=== PATIENT | male | born 1950 | race Caucasian/White ===

== ENCOUNTER 2017-09-19 12:30 | Emergency (ER) | payer MEDICARE, BC, SELFPAY ==
[2017-09-19 12:41] VITALS: BP 117/70; PULSE 57; RESP 20; TEMP 35.5; O2SAT 98; BMI 21.9
--- NOTE | 2017-09-19 13:02 | DI.RAD.S_ITS ---
PROCEDURE: XR ANKLE RT MIN 3V INDICATIONS: fall, pain lateral malleolus, decreased rom TECHNIQUE: 3 views of the ankle were acquired. COMPARISON: None. FINDINGS: Bones: No fractures or dislocations. Ankle mortise is normally aligned. No suspicious bony lesions. Soft tissues: No tibiotalar joint effusion. Achilles tendon appears normal. IMPRESSION: No acute radiographic findings. If pain persists, repeat study in 5-7 days is recommended to exclude occult fracture. Dictated by: Mirna Gambino M.D. on 09/19/2017 at 13:52 Approved by: Mirna Gambino M.D. on 09/19/2017 at 13:52
--- NOTE | 2017-09-19 13:02 | DI.RAD.S_ITS ---
PROCEDURE: XR WRIST LT MIN 3V INDICATIONS: pain, decreased ROM after fall TECHNIQUE: 4 views of the wrist were acquired. COMPARISON: None. FINDINGS: Bones: There is a comminuted, intra-articular fracture of the distal radius. The distal ulna appears intact. Scaphoid view: The scaphoid is intact. Soft tissues: No suspicious soft tissue calcifications. IMPRESSION: Comminuted intra-articular distal radial fracture. Dictated by: Mirna Gambino M.D. on 09/19/2017 at 13:53 Approved by: Mirna Gambino M.D. on 09/19/2017 at 13:53
--- NOTE | 2017-09-19 13:02 | DI.RAD.S_ITS ---
PROCEDURE: XR FOOT RT MIN 3V INDICATIONS: pain, decreased ROM after fall TECHNIQUE: 3 views of the foot were acquired. COMPARISON: None. FINDINGS: Bones: No fractures or dislocations. No suspicious bony lesions. Soft tissues: No tibiotalar joint effusion. Achilles tendon appears normal. IMPRESSION: No acute radiographic findings. If pain persists, repeat study in 5-7 days is recommended to exclude occult fracture. Dictated by: Mirna Gambino M.D. on 09/19/2017 at 13:51 Approved by: Mirna Gambino M.D. on 09/19/2017 at 13:52
--- NOTE | 2017-09-19 13:08 | ED.LOWEXIN ---
HPI - Extremity Injury (Lower) <AMY Toledo - Last Filed: 09/19/17 22:41> General Chief Complaint: Extremity Injury, Lower Stated Complaint: FELL,RT ANKLE AND LFT WRIST HURTING Time Seen by Provider: 09/19/17 12:54 Source: patient and family Mode of arrival: ambulatory Limitations: no limitations History of Present Illness HPI Narrative: Patient states he fell while getting off the boat about an hour ago. He states he has pain in his left wrist and right ankle. He states he tripped and fell, did not syncope. He was able to walk after the accident. He denies hitting his head, neck, back or any other injuries from his fall. He states decreased range of motion and pain to palpation of his right ankle, top of right foot as well as left wrist. He has not taken anything for pain yet. He does have a few abrasions on his legs and states he is tetanus is updated in 2011. Pain in wrist is described as on top of wrist with movement. Pain in ankle as described as the side of ankle and the top of the foot. Related Data Allergies Allergy/AdvReac Type Severity Reaction Status Date / Time No Known Drug Allergies Allergy Verified 09/19/17 12:45 Review of Systems <AMY Toledo - Last Filed: 09/19/17 22:41> Review of Systems GENERAL: Denies chills, fatigue, malaise, fever, sweats. HEENT: Denies sinus pain, ear pain, sore throat, difficulty swallowing, dizziness. RESPIRATORY: Denies dyspnea, cough, wheezing, hemoptysis, sputum. CARDIOVASCULAR: Denies chest pain, palpitations, orthopnea, edema, GASTROINTESTINAL: Denies nausea, vomiting, abdominal pain, diarrhea, constipation, melena. : Denies dysuria, frequency, incontinence, hematuria, urinary retention. MUSCULOSKELETAL: See HPI SKIN: See HPI NEUROLOGIC: Denies weakness, headache, numbness, change in speech, confusion, seizures, incoordination. PSYCHIATRIC: No concerning psychosocial issues. 12 point review of systems is negative except for those stated above Exam <AMY Toledo - Last Filed: 09/19/17 22:41> Narrative Exam Narrative: GENERAL: This is a well-nourished, well-developed patient, in no distress. at bedside. HEAD: Atraumatic. Normocephalic. No temporal or scalp tenderness. EYES: Pupils equal round and reactive. Extraocular motions intact. No scleral icterus. No injection or drainage. ENT: Nose without bleeding, purulent drainage or septal hematoma. Throat without erythema, tonsillar hypertrophy or exudate. Uvula midline. Airway patent. NECK: Trachea midline. No JVD or lymphadenopathy. Supple, nontender, no meningeal signs. CARDIOVASCULAR: Regular rate and rhythm without murmurs, gallops, or rubs. RESPIRATORY: Clear to auscultation. Breath sounds equal bilaterally. No wheezes, rales, or rhonchi. GASTROINTESTINAL: Abdomen soft, non-tender, nondistended. No hepato-splenomegaly, or palpable masses. No guarding. EXTREMITIES: Right ankle: Patient is able to extend ankle, pain on flexion of ankle. Pain to palpation lateral aspect of ankle distal to the malleolus. Swelling noted distal to lateral malleolus, extending over foot. pain to palpation top of right foot. Positive peripheral pulses right foot. left wrist: Pain to palpation anterior aspect of left wrist. Patient is able to flex and extend left wrist though has pain on flexion. No snuffbox tenderness to palpation. Patient is able to pronate and supinate forearm without difficulty. Positive radial pulse in left wrist. BACK: Nontender without deformity or crepitance. No flank tenderness. NEURO: AOx3. SKIN: Ecchymosis noted lateral malleolus of right ankle. Slight abrasions noted to right rey. Initial Vital Signs Initial Vital Signs: Vital Signs Temperature 96 F L 09/19/17 12:41 Pulse Rate 57 L 09/19/17 12:41 Respiratory Rate 20 09/19/17 12:41 Blood Pressure 117/70 09/19/17 12:41 Pulse Oximetry 98 09/19/17 12:41 <Edward Phelps MD - Last Filed: 10/21/17 06:48> Initial Vital Signs Initial Vital Signs: Vital Signs Temperature 96 F L 09/19/17 12:41 Pulse Rate 57 L 09/19/17 12:41 Respiratory Rate 20 09/19/17 12:41 Blood Pressure 117/70 09/19/17 12:41 Pulse Oximetry 98 09/19/17 12:41 Procedures <AMY Toledo - Last Filed: 09/19/17 22:41> Orthopedic Splinting/Casting Injury #1: Side: left Upper Extremity Injury Location: wrist Upper Extremity Immobilizer: sling/shoulder immobilizer and sugar tong splint Additional Comments: Pulse motor sensory was intact before and after splint application. Fingers are warm, patient able to move fingers. Course <SANTANA Toledo-BC - Last Filed: 09/19/17 22:41> Orders Ordered: Discontinued Medications Ibuprofen (Advil) 800 mg PO NOW ONE Stop: 09/19/17 14:49 Last Admin: 09/19/17 14:52 Dose: 800 mg Reevaluation(s) Reevaluation #1: Discussed waiting for x-rays. Discussed waiting for x-ray result. Patient does not want pain medication at this time. Appears comfortable in bed, talking on cell phone. Time: 13:10 Reevaluation #2: Discussed waiting for x-ray result. Patient still does not want pain medication or ice at this time. Time: 13:45 Reevaluation #3: Discussed x-ray results with patient and . Discussed incidence of distal radial fracture. Discussed desire to place splint, as a double sugar-tong to prevent pronation and supination. Patient declined upper portion of splint. Discussed at length not pronating or supinating. Time: 14:30 Additional Reevaluation(s): 14:50: Evaluated splint. Pulse motor sensory distal to splint is intact. Offered pain medication and ice again. Discussed at length follow up with primary care as well as [facility]. Patient declined prescription pain medication at this time. Vital Signs - 8 hr 09/19/17 15:17 Pulse Rate 73 Respiratory Rate 16 Blood Pressure [Right Arm] 127/78 H Pulse Oximetry 96 <Edward Phelps MD - Last Filed: 10/21/17 06:48> Orders Ordered: Discontinued Medications Ibuprofen (Advil) 800 mg PO NOW ONE Stop: 09/19/17 14:49 Last Admin: 09/19/17 14:52 Dose: 800 mg Vital Signs - 8 hr 09/19/17 15:17 Pulse Rate 73 Respiratory Rate 16 Blood Pressure [Right Arm] 127/78 H Pulse Oximetry 96 MDM - Extremity Injury (Lower) <HOLA ToledoBC - Last Filed: 09/19/17 22:41> Imaging Data left wrist xray: Radiologist's impression: View Report History [address] [address] XRay Report Signed Patient: Rob Murphy MR#: [id number] : 1950 Acct:[id number] Age/Sex: 67 / M Date of Service: 09/19/17 Loc: ED Accession Number: [id number] Procedure: XR wrist LT min 3V Ordering Provider: Terra Summers-MORGAN PROCEDURE: XR WRIST LT MIN 3V INDICATIONS: pain, decreased ROM after fall TECHNIQUE: 4 views of the wrist were acquired. COMPARISON: None. FINDINGS: Bones: There is a comminuted, intra-articular fracture of the distal radius. The distal ulna appears intact. Scaphoid view: The scaphoid is intact. Soft tissues: No suspicious soft tissue calcifications. IMPRESSION: Comminuted intra-articular distal radial fracture. Dictated by: Mirna Gambino M.D. on 09/19/2017 at 13:53 Approved by: Mirna Gambino M.D. on 09/19/2017 at 13:53 right foot xray: Radiologist's impression: View Report History [address] [address] XRay Report Signed Patient: Rob Murphy MR#: [id number] : 1950 Acct:[id number] Age/Sex: 67 / M Date of Service: 09/19/17 Loc: ED Accession Number: [id number] Procedure: XR foot RT min 3V Ordering Provider: Terra Summers-MORGAN PROCEDURE: XR FOOT RT MIN 3V INDICATIONS: pain, decreased ROM after fall TECHNIQUE: 3 views of the foot were acquired. COMPARISON: None. FINDINGS: Bones: No fractures or dislocations. No suspicious bony lesions. Soft tissues: No tibiotalar joint effusion. Achilles tendon appears normal. IMPRESSION: No acute radiographic findings. If pain persists, repeat study in 5-7 days is recommended to exclude occult fracture. Dictated by: Mirna Gambino M.D. on 09/19/2017 at 13:51 Approved by: Mirna Gambino M.D. on 09/19/2017 at 13:52 right ankle xray: Radiologist's impression: View Report History [address] [address] XRay Report Signed Patient: Rob Murphy MR#: [id number] : 1950 Acct:[id number] Age/Sex: 67 / M Date of Service: 09/19/17 Loc: ED Accession Number: [id number] Procedure: XR ankle RT min 3V Ordering Provider: Terra Summers [employer]-BC PROCEDURE: XR ANKLE RT MIN 3V INDICATIONS: fall, pain lateral malleolus, decreased rom TECHNIQUE: 3 views of the ankle were acquired. COMPARISON: None. FINDINGS: Bones: No fractures or dislocations. Ankle mortise is normally aligned. No suspicious bony lesions. Soft tissues: No tibiotalar joint effusion. Achilles tendon appears normal. IMPRESSION: No acute radiographic findings. If pain persists, repeat study in 5-7 days is recommended to exclude occult fracture. Dictated by: Mirna Gambino M.D. on 09/19/2017 at 13:52 Approved by: Mirna Gambino M.D. on 09/19/2017 at 13:52 [facility] Narrative Medical decision making narrative: Patient's x-rays were concerning for a comminuted intra-articular distal radial fracture. However his foot and ankle x-rays came back negative. Patient was placed in a sugar-tong splint as he declined a splint of his humerus as per up-to-date recommendations. He was given contact information for [facility]. We discussed at length rice, zest-czt-juckhuo pain medication as needed. He declined pain medications several times in the emergency department. Discharge Plan Departure Patient Disposition: Home, Self-Care Clinical Impression: Closed fracture of left distal radius, Acute right ankle pain Discharge Date/Time: 09/19/17 15:16 Interventions: ED Discharge Assessment Last Done: 09/19/17 15:15 Instructions: DI for Distal Radius Fracture, DI for Ankle Pain Activity Restrictions/Additional Instructions: Today your x-ray show that you broke the lower portion of your wrist. I would like you to follow up with [facility] and placed a referral. Monitor for circulation in your left hand. If you are concerned about decreased circulation, please have your splint and wrist evaluated. I encourage rest, ice, cvib-hpa-esiuwsi pain medication as able, elevation, and compression. Follow up with primary care if your ankle does not improve. He may need further imaging or referral. Referrals: [facility] [Provider Group] Seamus Baca MD [Physician] - <Edward Phelps MD - Last Filed: 10/21/17 06:48> Cosign ED Attending Cosignature Attestation: The PA/TECHNOLOGY AUDITOR functioned independently for the care of this pt, I was available, but not asked to participate in care. I am unable to determine appropriateness of management without personally examining the pt.
--- NOTE | 2017-09-19 13:14 | ED_ITS ---
HPI - Extremity Injury (Lower) <AMY Toledo - Last Filed: 09/19/17 22:41> General Chief Complaint: Extremity Injury, Lower Stated Complaint: FELL,RT ANKLE AND LFT WRIST HURTING Time Seen by Provider: 09/19/17 12:54 Source: patient and family Mode of arrival: ambulatory Limitations: no limitations History of Present Illness HPI Narrative: Patient states he fell while getting off the boat about an hour ago. He states he has pain in his left wrist and right ankle. He states he tripped and fell, did not syncope. He was able to walk after the accident. He denies hitting his head, neck, back or any other injuries from his fall. He states decreased range of motion and pain to palpation of his right ankle, top of right foot as well as left wrist. He has not taken anything for pain yet. He does have a few abrasions on his legs and states he is tetanus is updated in 2011. Pain in wrist is described as on top of wrist with movement. Pain in ankle as described as the side of ankle and the top of the foot. Related Data Allergies Allergy/AdvReac Type Severity Reaction Status Date / Time No Known Drug Allergies Allergy Verified 09/19/17 12:45 Review of Systems <AMY Toledo - Last Filed: 09/19/17 22:41> Review of Systems GENERAL: Denies chills, fatigue, malaise, fever, sweats. HEENT: Denies sinus pain, ear pain, sore throat, difficulty swallowing, dizziness. RESPIRATORY: Denies dyspnea, cough, wheezing, hemoptysis, sputum. CARDIOVASCULAR: Denies chest pain, palpitations, orthopnea, edema, GASTROINTESTINAL: Denies nausea, vomiting, abdominal pain, diarrhea, constipation, melena. : Denies dysuria, frequency, incontinence, hematuria, urinary retention. MUSCULOSKELETAL: See HPI SKIN: See HPI NEUROLOGIC: Denies weakness, headache, numbness, change in speech, confusion, seizures, incoordination. PSYCHIATRIC: No concerning psychosocial issues. 12 point review of systems is negative except for those stated above Exam <AMY Toledo - Last Filed: 09/19/17 22:41> Narrative Exam Narrative: GENERAL: This is a well-nourished, well-developed patient, in no distress. at bedside. HEAD: Atraumatic. Normocephalic. No temporal or scalp tenderness. EYES: Pupils equal round and reactive. Extraocular motions intact. No scleral icterus. No injection or drainage. ENT: Nose without bleeding, purulent drainage or septal hematoma. Throat without erythema, tonsillar hypertrophy or exudate. Uvula midline. Airway patent. NECK: Trachea midline. No JVD or lymphadenopathy. Supple, nontender, no meningeal signs. CARDIOVASCULAR: Regular rate and rhythm without murmurs, gallops, or rubs. RESPIRATORY: Clear to auscultation. Breath sounds equal bilaterally. No wheezes , rales, or rhonchi. GASTROINTESTINAL: Abdomen soft, non-tender, nondistended. No hepato-splenomegaly , or palpable masses. No guarding. EXTREMITIES: Right ankle: Patient is able to extend ankle, pain on flexion of ankle. Pain to palpation lateral aspect of ankle distal to the malleolus. Swelling noted distal to lateral malleolus, extending over foot. pain to palpation top of right foot. Positive peripheral pulses right foot. left wrist: Pain to palpation anterior aspect of left wrist. Patient is able to flex and extend left wrist though has pain on flexion. No snuffbox tenderness to palpation. Patient is able to pronate and supinate forearm without difficulty. Positive radial pulse in left wrist. BACK: Nontender without deformity or crepitance. No flank tenderness. NEURO: AOx3. SKIN: Ecchymosis noted lateral malleolus of right ankle. Slight abrasions noted to right rey. Initial Vital Signs Initial Vital Signs: Vital Signs Temperature 96 F L 09/19/17 12:41 Pulse Rate 57 L 09/19/17 12:41 Respiratory Rate 20 09/19/17 12:41 Blood Pressure 117/70 09/19/17 12:41 Pulse Oximetry 98 09/19/17 12:41 <Edward Phelps MD - Last Filed: 10/21/17 06:48> Initial Vital Signs Initial Vital Signs: Vital Signs Temperature 96 F L 09/19/17 12:41 Pulse Rate 57 L 09/19/17 12:41 Respiratory Rate 20 09/19/17 12:41 Blood Pressure 117/70 09/19/17 12:41 Pulse Oximetry 98 09/19/17 12:41 Procedures <AMY Toledo - Last Filed: 09/19/17 22:41> Orthopedic Splinting/Casting Injury #1: Side: left Upper Extremity Injury Location: wrist Upper Extremity Immobilizer: sling/shoulder immobilizer and sugar tong splint Additional Comments: Pulse motor sensory was intact before and after splint application. Fingers are warm, patient able to move fingers. Course <SANTANA Toledo-BC - Last Filed: 09/19/17 22:41> Orders Ordered: Discontinued Medications Ibuprofen (Advil) 800 mg PO NOW ONE Stop: 09/19/17 14:49 Last Admin: 09/19/17 14:52 Dose: 800 mg Reevaluation(s) Reevaluation #1: Discussed waiting for x-rays. Discussed waiting for x-ray result. Patient does not want pain medication at this time. Appears comfortable in bed, talking on cell phone. Time: 13:10 Reevaluation #2: Discussed waiting for x-ray result. Patient still does not want pain medication or ice at this time. Time: 13:45 Reevaluation #3: Discussed x-ray results with patient and . Discussed incidence of distal radial fracture. Discussed desire to place splint, as a double sugar-tong to prevent pronation and supination. Patient declined upper portion of splint. Discussed at length not pronating or supinating. Time: 14:30 Additional Reevaluation(s): 14:50: Evaluated splint. Pulse motor sensory distal to splint is intact. Offered pain medication and ice again. Discussed at length follow up with primary care as well as [facility]. Patient declined prescription pain medication at this time. Vital Signs - 8 hr 09/19/17 15:17 Pulse Rate 73 Respiratory Rate 16 Blood Pressure [Right Arm] 127/78 H Pulse Oximetry 96 <Edward Phelps MD - Last Filed: 10/21/17 06:48> Orders Ordered: Discontinued Medications Ibuprofen (Advil) 800 mg PO NOW ONE Stop: 09/19/17 14:49 Last Admin: 09/19/17 14:52 Dose: 800 mg Vital Signs - 8 hr 09/19/17 15:17 Pulse Rate 73 Respiratory Rate 16 Blood Pressure [Right Arm] 127/78 H Pulse Oximetry 96 MDM - Extremity Injury (Lower) <HOLA ToledoBC - Last Filed: 09/19/17 22:41> Imaging Data left wrist xray: Radiologist's impression: View Report History [address] [address] XRay Report Signed Patient: Rob Murphy MR#: [id number] : 1950 Acct:[id number] Age/Sex: 67 / M Date of Service: 09/19/17 Loc: ED Accession Number: [id number] Procedure: XR wrist LT min 3V Ordering Provider: Terra Summers-MORGAN PROCEDURE: XR WRIST LT MIN 3V INDICATIONS: pain, decreased ROM after fall TECHNIQUE: 4 views of the wrist were acquired. COMPARISON: None. FINDINGS: Bones: There is a comminuted, intra-articular fracture of the distal radius. The distal ulna appears intact. Scaphoid view: The scaphoid is intact. Soft tissues: No suspicious soft tissue calcifications. IMPRESSION: Comminuted intra-articular distal radial fracture. Dictated by: Mirna Gambino M.D. on 09/19/2017 at 13:53 Approved by: Mirna Gambino M.D. on 09/19/2017 at 13:53 right foot xray: Radiologist's impression: View Report History [address] [address] XRay Report Signed Patient: Rob Murphy MR#: [id number] : 1950 Acct:[id number] Age/Sex: 67 / M Date of Service: 09/19/17 Loc: ED Accession Number: [id number] Procedure: XR foot RT min 3V Ordering Provider: Terra Summers-MORGAN PROCEDURE: XR FOOT RT MIN 3V INDICATIONS: pain, decreased ROM after fall TECHNIQUE: 3 views of the foot were acquired. COMPARISON: None. FINDINGS: Bones: No fractures or dislocations. No suspicious bony lesions. Soft tissues: No tibiotalar joint effusion. Achilles tendon appears normal. IMPRESSION: No acute radiographic findings. If pain persists, repeat study in 5 -7 days is recommended to exclude occult fracture. Dictated by: Mirna Gambino M.D. on 09/19/2017 at 13:51 Approved by: Mirna Gambino M.D. on 09/19/2017 at 13:52 right ankle xray: Radiologist's impression: View Report History [address] [address] XRay Report Signed Patient: Rob Murphy MR#: [id number] : 1950 Acct:[id number] Age/Sex: 67 / M Date of Service: 09/19/17 Loc: ED Accession Number: [id number] Procedure: XR ankle RT min 3V Ordering Provider: Terra Summers PACKAGE WORKER-BC PROCEDURE: XR ANKLE RT MIN 3V INDICATIONS: fall, pain lateral malleolus, decreased rom TECHNIQUE: 3 views of the ankle were acquired. COMPARISON: None. FINDINGS: Bones: No fractures or dislocations. Ankle mortise is normally aligned. No suspicious bony lesions. Soft tissues: No tibiotalar joint effusion. Achilles tendon appears normal. IMPRESSION: No acute radiographic findings. If pain persists, repeat study in 5 -7 days is recommended to exclude occult fracture. Dictated by: Mirna Gambino M.D. on 09/19/2017 at 13:52 Approved by: Mirna Gambino M.D. on 09/19/2017 at 13:52 [facility] Narrative Medical decision making narrative: Patient's x-rays were concerning for a comminuted intra-articular distal radial fracture. However his foot and ankle x -rays came back negative. Patient was placed in a sugar-tong splint as he declined a splint of his humerus as per up-to-date recommendations. He was given contact information for [facility]. We discussed at length rice, kzhs-gjw-lscedum pain medication as needed. He declined pain medications several times in the emergency department. Discharge Plan Departure Patient Disposition: Home, Self-Care Clinical Impression: Closed fracture of left distal radius, Acute right ankle pain Discharge Date/Time: 09/19/17 15:16 Interventions: ED Discharge Assessment Last Done: 09/19/17 15:15 Instructions: DI for Distal Radius Fracture, DI for Ankle Pain Activity Restrictions/Additional Instructions: Today your x-ray show that you broke the lower portion of your wrist. I would like you to follow up with [facility] and placed a referral. Monitor for circulation in your left hand. If you are concerned about decreased circulation, please have your splint and wrist evaluated. I encourage rest, ice, rgul-zmr-paatelo pain medication as able, elevation, and compression. Follow up with primary care if your ankle does not improve. He may need further imaging or referral. Referrals: [facility] [Provider Group] Seamus Baca MD [Physician] - <Edward Phelps MD - Last Filed: 10/21/17 06:48> Cosign ED Attending Cosignature Attestation: The PA/TALLOW MAKER functioned independently for the care of this pt, I was available, but not asked to participate in care. I am unable to determine appropriateness of management without personally examining the pt.
[2017-09-19] MEDS: IBUPROFEN 400 MG TABLET 800 MG PO (14:52)
[2017-09-19 15:17] VITALS: BP 127/78; PULSE 73; RESP 16; O2SAT 96
== END 2017-09-19 15:16 | disposition home or self-care (01) ==
PROVIDERS: Emergency Provider Nurse Practitioner Family
DX: S52.502A Unspecified fracture of the lower end of left radius, initial encounter for closed fracture (principal); M25.571 Pain in right ankle and joints of right foot; W01.0XXA Fall on same level from slipping, tripping and stumbling without subsequent striking against object, initial encounter
CPT/HCPCS: 29105; 29240; 73110; 73610; 73630; 99283; 99284

== ENCOUNTER → 2018-06-27 07:15 | Outpatient (CLI) | payer MEDICARE, BC, SELFPAY ==
[2018-06-27 09:08] LABS: Add Manual Diff / Slide Review NO; Basophils Absolute Auto 0 /uL (0-100); Basophils Percent Auto 0.5 % (0-2); Eosinophils Absolute Auto 200 /uL (0-450); Eosinophils Percent Auto 2.4 % (2-4); Hematocrit 46.1 % (41-53); Lymphocytes Absolute Auto 1900 /uL (1100-4500); Lymphocytes Percent Auto 27.4 % (25-40); Mean Corpuscular HGB Conc 34.6 % (30-36); Mean Corpuscular Hemoglobin 32.4 PG (26-34); Mean Corpuscular Volume 93.7 fL (80-100); Monocytes Absolute Auto 400 /uL (0-900); Monocytes Percent Auto 5.2 % (3-14); Neutrophils Absolute Auto 4400 /uL (1500-7000); Neutrophils Percent Auto 64.5 % (50-75); Platelet Count 290 X10^3/uL (150-400); Red Blood Cell Count 4.93 X10^6/uL (4.5-5.9); Red Cell Distribution Width 12.8 % (11.6-14.8); White Blood Cell Count 6.8 X10^3/uL (4.5-11.0)
[2018-06-27 09:45] LABS: Alanine Aminotransferase 45 IU/L (21-72); Albumin 4.7 g/dL (3.5-5.0); Albumin Globulin Ratio 1.4 (1.0-2.8); Alkaline Phosphatase 59 U/L (38-126); Aspartate Aminotransferase 31 IU/L (17-59); Bilirubin Total 0.5 mg/dL (0.2-1.3); Blood Urea Nitrogen 14 mg/dL (9-20); Calcium 9.9 mg/dL (8.4-10.2); Carbon Dioxide 26 mmol/L (22-32); Chloride 102 mmol/L (98-107); Cholesterol 217 mg/dL (140-199); Estimated Glomerular Filt Rate > 60.0 mL/min (>60); Globulin 3.3 g/dL (1.7-4.1); Glucose 102 mg/dL (80-110); HDL Cholesterol 38 mg/dL (40-60); HEMOLYSIS < 15 (0-50); LDL Cholesterol Calculated 147 mg/dL (<100); Potassium 4.3 mmol/L (3.4-5.1); Sodium 140 mmol/L (137-145); Triglycerides 159 mg/dL (35-150)
[2018-06-27 09:47] LABS: Vitamin D 25 Hydroxy (D3) 36.7 ng/mL (30.0-100.0)
[2018-06-27 10:00] LABS: Prostate Specific Antigen Scrn 0.794 ng/mL (0.1-4.0)
[2018-06-27 10:01] LABS: Thyroid Stimulating Hormone 3.95 uIU/mL (0.47-4.68)
== END ==
PROVIDERS: Visit Provider Internal Medicine
DX: Z12.5 Encounter for screening for malignant neoplasm of prostate (principal); R53.83 Other fatigue; E78.49 Other hyperlipidemia
CPT/HCPCS: 36415; 80053; 80061; 82306; 84443; 85025; G0103

== ENCOUNTER → 2018-12-06 07:45 | Outpatient (CLI) | payer MEDICARE, BC, SELFPAY ==
[2018-12-06 09:11] LABS: Alanine Aminotransferase 42 IU/L (21-72); Aspartate Aminotransferase 32 IU/L (17-59); Cholesterol 127 mg/dL (140-199); HDL Cholesterol 34 mg/dL (40-60); LDL Cholesterol Calculated 62 mg/dL (<100); Triglycerides 156 mg/dL (35-150)
== END ==
PROVIDERS: Visit Provider Internal Medicine
DX: E78.5 Hyperlipidemia, unspecified (principal)
CPT/HCPCS: 36415; 80061; 84450; 84460

== ENCOUNTER 2019-01-18 10:50 | Emergency (ER) | payer MEDICARE, BC, SELFPAY ==
[2019-01-18 10:56] VITALS: BP 155/77; PULSE 92; RESP 14; TEMP 36.4; O2SAT 94
--- NOTE | 2019-01-18 11:14 | ED.EXTPRO ---
HPI - Extremity Problem <Theo MccormickMauricioArshOMARI joseph - Last Filed: 01/18/19 22:07> General Chief complaint: Extremity Problem,Nontraumatic Stated complaint: right thigh sensative x2 days Time Seen by Provider: 01/18/19 10:59 Source: patient Mode of arrival: Ambulatory Limitations: no limitations History of Present Illness HPI Narrative: This is a 68-year-old male, nonsmoker, who presents to ED with right medial aspect the thigh sensitivity to touch and mild red strict noticed from yesterday. Patient denies recent surgery, history of blood clots or cancer, prolonged travel, swelling, pain. Patient is physically active and walks daily. Noticed increased and sensitivity with walking. Patient denies a fever/chills, nausea or vomiting. Patient denies history of DVT in the past. Patient denies taking daily aspirin or on anticoagulants. Patient states sensation to his leg is intact and is able to move his legs without difficulty. Related Data Home Medications Medication Instructions Recorded Confirmed atorvastatin 10 mg tablet 10 mg PO QPM 08/18/18 01/18/19 Tums 1 tab PO PRN PRN 01/18/19 01/18/19 Previous Rx's Medication Instructions Recorded apixaban [Eliquis] 10 mg PO BID 7 Days #26 tab 01/18/19 Allergies Allergy/AdvReac Type Severity Reaction Status Date / Time No Known Drug Allergies Allergy Verified 11/29/18 11:27 Review of Systems <Theo VidalesOMARI joseph - Last Filed: 01/18/19 22:07> Review of Systems Narrative: General: Denies fever, chills, fatigue, malaise, sweats. HEENT: Denies sinus pain, ear pain, sore throat, difficulty swallowing, dizziness. Respiratory: Denies dyspnea, cough, wheezing, hemoptysis, sputum. Cardiovascular: Denies chest pain, palpitations, orthopnea, edema. Gastrointestinal: Denies nausea, vomiting, abdominal pain, diarrhea, constipation, melena. : Denies dysuria, frequency, incontinence, hematuria, urinary retention. Musculoskeletal: See HPI Skin: Mild redness to right inner thigh. Denies rash, skin lesions, or other. Neurologic: Denies weakness, headache, numbness, change in speech, confusion, seizures, incoordination. Psychiatric: No concerning psychosocial issues. 12-point review of systems is negative except for those stated above. PFSH <OMARI Browne - Last Filed: 01/18/19 22:07> Medical History Excessive daytime sleepiness (Chronic) History of hyperlipidemia (Acute) Obstructive sleep apnea of adult (Chronic) Snoring (Chronic) Surgical History History of toe surgery (Acute) Social History Smoking Status: Never smoker Social History Smoking Status: Never smoker Exam <OMARI Browne - Last Filed: 01/18/19 22:07> Narrative Exam Narrative: GEN: Alert, oriented x 3, well appearing and nourished, and in no acute distress. Head: Normal cephalic, atraumatic. No scalp or temporal tenderness, palpable mass or rash. EYES: Pupils are equal, round, and reactive to light and accommodation. Extraocular muscles are intact bilaterally. There is no subconjunctival hemorrhage, exudate and sclera non-icteric. ENT: Hearing grossly intact. Nose without bleeding, purulent discharge or deviation. Mucous membrane moist, no mucosal lesion. Throat without erythema, tonsillar hypertrophy or exudate. Uvula in midline, airway patent. Neck: Trachea in midline. No JVD, non-tender without lymphadenopathy. No masses or thyroid megaly. Supple, non-tender and no meningeal signs. CARDIAC: Normal regular rate and rhythm without murmurs, gallops, or rubs. No chest wall tenderness. No peripheral edema, cyanosis or pallor. Capillary refill is less than 2 seconds. RESPIRATORY: Lungs are cleat to auscultate bilaterally. No cough, wheezes, rales, or rhonchi. No stridor, respiratory distress, increase work of breathing, or accessary muscle used. ABD: Abdomen soft, nontender and non-distended. No guarding or rebound tenderness to palpate. Bowel sounds are normal in all 4 quadrants. There is no palpable masses or organomegaly. EXT: Full painless ROM of all extremities with no loss of sensation, strength, effusion or edema. SKIN: Faint erythema to right inner thigh. Warm, dry, normal color for patient. No lesions or rash over other visible areas. BACK: Nontender without deformity or crepitance. No flank tenderness. NEUROLOGICAL: Reports hypersensitivity to light palpation on right medial thigh. Denies pain. To palpate Alert and oriented to place, time and person. Sensation and motor function intact bilaterally. No facial droops, dysphasia. PSYCHIATRIC: Good judgement and reason, without hallucinations, abnormal affect or abnormal behaviors during the examination. Initial Vital Signs Initial Vital Signs: Vital Signs Temperature 97.6 F 01/18/19 10:56 Pulse Rate 92 H 01/18/19 10:56 Respiratory Rate 14 01/18/19 10:56 Blood Pressure 155/77 H 01/18/19 10:56 Pulse Oximetry 94 01/18/19 10:56 <Terra Ramos DO - Last Filed: 01/23/19 19:35> Initial Vital Signs Initial Vital Signs: Vital Signs Temperature 97.6 F 01/18/19 10:56 Pulse Rate 92 H 01/18/19 10:56 Respiratory Rate 14 01/18/19 10:56 Blood Pressure 155/77 H 01/18/19 10:56 Pulse Oximetry 94 01/18/19 10:56 Scores <OMARI Browne - Last Filed: 01/18/19 22:07> Wells' Criteria for DVT Citation:: Well's Criteria for DVT score 1 as moderate risk. Course <OMARI Browne - Last Filed: 01/18/19 22:07> Orders Ordered: Discontinued Medications Apixaban (Eliquis) 10 mg PO NOW ONE Stop: 01/18/19 13:02 Last Admin: 01/18/19 13:20 Dose: 10 mg Documented by: ALFONSO Vital Signs Vital signs: Vital Signs - 8 hr 01/18/19 10:56 01/18/19 11:20 Temperature 97.6 F Pulse Rate 92 H 59 L Respiratory Rate 14 16 Blood Pressure 155/77 H Blood Pressure [Left Arm] 123/71 Pulse Oximetry 94 94 <Terra Ramos DO - Last Filed: 01/23/19 19:35> Orders Ordered: Discontinued Medications Apixaban (Eliquis) 10 mg PO NOW ONE Stop: 01/18/19 13:02 Last Admin: 01/18/19 13:20 Dose: 10 mg Documented by: ALFONSO Vital Signs Vital signs: Vital Signs - 8 hr 01/18/19 10:56 01/18/19 11:20 Temperature 97.6 F Pulse Rate 92 H 59 L Respiratory Rate 14 16 Blood Pressure 155/77 H Blood Pressure [Left Arm] 123/71 Pulse Oximetry 94 94 MDM - Extremity (Nontraumatic) <OMARI Browne - Last Filed: 01/18/19 22:07> Differential Diagnosis Differential diagnosis: Likely deep vein thrombosis of lower extremity and other (cellulitis) Medical Records Attestation: I reviewed the patient's medical records. Lab Data Attestation: I reviewed the patient's lab results. Result diagrams: 01/18/19 12:15 01/18/19 12:15 Labs: Lab Results 01/18/19 01/18/19 01/18/19 Range/Units 12:15 12:15 12:15 WBC 8.5 (4.5-11.0) X10^3/uL RBC 4.55 (4.5-5.9) X10^6/uL Hgb 14.7 (13.5-17.5) g/dL Hct 42.2 (41-53) % MCV 92.8 (80-100) fL MCH 32.3 (26-34) PG MCHC 34.8 (30-36) % RDW 12.5 (11.6-14.8) % Plt Count 245 (150-400) X10^3/uL Neut % (Auto) 71.2 (50-75) % Lymph % (Auto) 20.9 L (25-40) % [place] % (Auto) 6.0 (3-14) % Eos % (Auto) 1.5 L (2-4) % Baso % (Auto) 0.4 (0-2) % Neut # (Auto) 6100 (0111-5484) /uL Lymph # (Auto) 1800 (8833-3998) /uL [place] # (Auto) 500 (0-900) /uL Eos # (Auto) 100 (0-450) /uL Baso # (Auto) 0 (0-100) /uL PT 10.8 (10.1-12.7) SECONDS INR 0.9 (0.9-1.3) APTT 34 (26.4-36.2) SECONDS Sodium 142 (137-145) mmol/L Potassium 4.5 (3.4-5.1) mmol/L Chloride 102 (98-107) mmol/L Carbon Dioxide 30 (22-32) mmol/L BUN 14 (9-20) mg/dL Creatinine 0.90 (0.66-1.25) mg/dL Estimated GFR > 60.0 (>60) mL/min BUN/Creatinine Ratio 15.6 (6-22) Glucose 106 (80-110) mg/dL Calcium 9.9 (8.4-10.2) mg/dL Total Bilirubin 0.6 (0.2-1.3) mg/dL AST 36 (17-59) IU/L ALT 39 (21-72) IU/L Alkaline Phosphatase 70 (38-126) U/L Total Protein 7.6 (6.3-8.2) g/dL Albumin 4.5 (3.5-5.0) g/dL Globulin 3.1 (1.7-4.1) g/dL Albumin/Globulin Ratio 1.5 (1.0-2.8) Imaging Data US-peripheral R lower: Radiologist's impression: [place] [address] Ultrasound Report Signed Patient: Rob Murphy TMR#: [id number] : 9Acct:[id number] Age/Sex: 68 / MDate of Service: 01/18/19 Loc: ED Accession Number: [id number] Procedure: US periph venous low extrem rt Ordering Provider: Theo Ogden PROCEDURE: US PERIPH VENOUS LOW EXTREM RT INDICATIONS: RIGHT MEDIAL THIGH MILD REDNESS AND SENSITIVITY, NO TRAUMA TECHNIQUE: Real-time imaging, as well as color and pulse Doppler interrogation, were performed of the lower extremity deep veins from the inguinal ligament to the popliteal fossa. COMPARISON: None. FINDINGS: The common femoral, femoral and popliteal veins are normally compressible, and free of intraluminal thrombus. Color and pulse Doppler demonstrate normal phasic intraluminal flow. There is normal augmentation response to distal compression maneuver. However, occlusive thrombus is identified within the greater saphenous vein that extends from the level of the knee to within 4 mm of the confluence between the greater saphenous vein and the superficial femoral vein. IMPRESSION: Superficial thrombophlebitis of the greater saphenous vein without extension into the deep vein system. Dictated by: Mykel Mcneil M.D. on 01/18/2019 at 11:21 Approved by: Mykel Mcneil M.D. on 01/18/2019 at 11:24 MDM Narrative Medical decision making narrative: This is 68-year-old gentleman who presents to ED with right upper inner thigh slight redness streak and sensitivity. There is not swelling or no pain to palpate. Denies constitutional symptoms and no open skin noted. US test on peripheral R lower extremity shows occlusive thrombus identified within the greater saphenous vein that extends from the level of knee to within 4 mm of the confluence the greater saphenous and superficial femoral vein. Since the patient has risk factors of extension of SVT such as being a male, non-varicose vein, involvement above the knee and the location involved the SVT, it was decided to treat with anti-coagulation. The patient was advised to f/u with PCP on Wednesday and to monitor for bleeding and to avoid traumatic/non-traumatic injuries. The clinic was contacted and follow-up has been arranged for patient. The patient verbalized understanding and agrees with treatment plan. <Terra Ramos, DO - Last Filed: 01/23/19 19:35> Lab Data Labs: Lab Results 01/18/19 01/18/19 01/18/19 Range/Units 12:15 12:15 12:15 WBC 8.5 (4.5-11.0) X10^3/uL RBC 4.55 (4.5-5.9) X10^6/uL Hgb 14.7 (13.5-17.5) g/dL Hct 42.2 (41-53) % MCV 92.8 (80-100) fL MCH 32.3 (26-34) PG MCHC 34.8 (30-36) % RDW 12.5 (11.6-14.8) % Plt Count 245 (150-400) X10^3/uL Neut % (Auto) 71.2 (50-75) % Lymph % (Auto) 20.9 L (25-40) % [place] % (Auto) 6.0 (3-14) % Eos % (Auto) 1.5 L (2-4) % Baso % (Auto) 0.4 (0-2) % Neut # (Auto) 6100 (8450-3019) /uL Lymph # (Auto) 1800 (4797-9214) /uL [place] # (Auto) 500 (0-900) /uL Eos # (Auto) 100 (0-450) /uL Baso # (Auto) 0 (0-100) /uL PT 10.8 (10.1-12.7) SECONDS INR 0.9 (0.9-1.3) APTT 34 (26.4-36.2) SECONDS Sodium 142 (137-145) mmol/L Potassium 4.5 (3.4-5.1) mmol/L Chloride 102 (98-107) mmol/L Carbon Dioxide 30 (22-32) mmol/L BUN 14 (9-20) mg/dL Creatinine 0.90 (0.66-1.25) mg/dL Estimated GFR > 60.0 (>60) mL/min BUN/Creatinine Ratio 15.6 (6-22) Glucose 106 (80-110) mg/dL Calcium 9.9 (8.4-10.2) mg/dL Total Bilirubin 0.6 (0.2-1.3) mg/dL AST 36 (17-59) IU/L ALT 39 (21-72) IU/L Alkaline Phosphatase 70 (38-126) U/L Total Protein 7.6 (6.3-8.2) g/dL Albumin 4.5 (3.5-5.0) g/dL Globulin 3.1 (1.7-4.1) g/dL Albumin/Globulin Ratio 1.5 (1.0-2.8) MDM Narrative Medical decision making narrative: Patient case was discussed as well as imaging. Patient has DVT that is within 4 mm a cough fluids and was started on anticoagulation. Started on Eliquis and has plan for follow-up in the short term. Discharge Plan Departure Patient Disposition: Home Clinical Impression: Acute deep vein thrombosis (DVT) of proximal vein of right lower extremity Discharge Date/Time: 01/18/19 14:06 Instructions: DI for Deep Vein Thrombosis Activity Restrictions/Additional Instructions: You have been diagnosed with [DVT in right lower extremity proximal region per ultrasound test today]. What to do: *Take your medications as directed. The 1st dose of Eliquis has been provided in the ED. Eliquis 10mg twice a day for 10 days then this should be decreased 5 mg to twice a day afterwards. Please watch for bleeding once you are on this medication. *Follow up with your primary care provider on Wednesday at 1040 at [facility], call for an appointment. Let them know you were seen in the ED and that we asked you to be seen in follow up. *Return to ED if you have any new, worsening, or concerning symptoms, such as [chest pain, breathing difficulty, headache, any obvious bleeding, excessive bruising, blood in her stool/urine or vomit]. Prescriptions: New Eliquis 5 mg tablet 10 mg PO BID 7 Days Qty: 26 RF: 0 No Action Tums 1 tab PO PRN PRN (Reason: Indigestion) RF: 0 atorvastatin [Lipitor] 10 mg tablet 10 mg PO QPM RF: 0 Referrals: Erin Hay MD [Physician] -
--- NOTE | 2019-01-18 11:18 | DI.US.S_ITS ---
PROCEDURE: US PERIPH VENOUS LOW EXTREM RT INDICATIONS: RIGHT MEDIAL THIGH MILD REDNESS AND SENSITIVITY, NO TRAUMA TECHNIQUE: Real-time imaging, as well as color and pulse Doppler interrogation, were performed of the lower extremity deep veins from the inguinal ligament to the popliteal fossa. COMPARISON: None. FINDINGS: The common femoral, femoral and popliteal veins are normally compressible, and free of intraluminal thrombus. Color and pulse Doppler demonstrate normal phasic intraluminal flow. There is normal augmentation response to distal compression maneuver. However, occlusive thrombus is identified within the greater saphenous vein that extends from the level of the knee to within 4 mm of the confluence between the greater saphenous vein and the superficial femoral vein. IMPRESSION: Superficial thrombophlebitis of the greater saphenous vein without extension into the deep vein system. Dictated by: Mykel Mcneil M.D. on 01/18/2019 at 11:21 Approved by: Mykel Mcneil M.D. on 01/18/2019 at 11:24
[2019-01-18 11:20] VITALS: BP 123/71; PULSE 59; RESP 16; O2SAT 94
--- NOTE | 2019-01-18 11:27 | PC.NURSE ---
Patient reports spontaneous pain right inner thigh. Denies injury or trauma. Denies chest pain or SOB.
[2019-01-18 12:28] LABS: Add Manual Diff / Slide Review NO; Basophils Absolute Auto 0 /uL (0-100); Basophils Percent Auto 0.4 % (0-2); Eosinophils Absolute Auto 100 /uL (0-450); Eosinophils Percent Auto 1.5 % (2-4); Hematocrit 42.2 % (41-53); Hemoglobin 14.7 g/dL (13.5-17.5); Lymphocytes Absolute Auto 1800 /uL (1100-4500); Lymphocytes Percent Auto 20.9 % (25-40); Mean Corpuscular HGB Conc 34.8 % (30-36); Mean Corpuscular Hemoglobin 32.3 PG (26-34); Mean Corpuscular Volume 92.8 fL (80-100); Monocytes Absolute Auto 500 /uL (0-900); Neutrophils Absolute Auto 6100 /uL (1500-7000); Neutrophils Percent Auto 71.2 % (50-75); Platelet Count 245 X10^3/uL (150-400); Red Blood Cell Count 4.55 X10^6/uL (4.5-5.9); Red Cell Distribution Width 12.5 % (11.6-14.8); White Blood Cell Count 8.5 X10^3/uL (4.5-11.0)
[2019-01-18 12:38] LABS: INR 0.9 (0.9-1.3); Prothrombin Time 10.8 SECONDS (10.1-12.7)
[2019-01-18 12:41] LABS: PTT Partial Thromboplastin Tim 34 SECONDS (26.4-36.2)
[2019-01-18 12:42] LABS: Alanine Aminotransferase 39 IU/L (21-72); Albumin 4.5 g/dL (3.5-5.0); Albumin Globulin Ratio 1.5 (1.0-2.8); Alkaline Phosphatase 70 U/L (38-126); Aspartate Aminotransferase 36 IU/L (17-59); BUN Creatinine Ratio 15.6 (6-22); Bilirubin Total 0.6 mg/dL (0.2-1.3); Blood Urea Nitrogen 14 mg/dL (9-20); Calcium 9.9 mg/dL (8.4-10.2); Carbon Dioxide 30 mmol/L (22-32); Chloride 102 mmol/L (98-107); Estimated Glomerular Filt Rate > 60.0 mL/min (>60); Globulin 3.1 g/dL (1.7-4.1); Glucose 106 mg/dL (80-110); HEMOLYSIS < 15 (0-50); Potassium 4.5 mmol/L (3.4-5.1); Sodium 142 mmol/L (137-145); Total Protein 7.6 g/dL (6.3-8.2)
[2019-01-18] MEDS: APIXABAN 5 MG TABLET 10 MG PO (13:20)
--- NOTE | 2019-06-12 15:53 | ONC.MSW ---
Description: Initial Referral Navigation Reason for Referral: venous thrombosis Activity: Reviewed referral for medical status, acuity and immediate needs. Forwarded to scheduling for next available initial consult appt. f/u.
== END 2019-01-18 14:06 | disposition home or self-care (01) ==
PROVIDERS: Emergency Provider Nurse Practitioner Family
DX: I82.4Y1 Acute embolism and thrombosis of unspecified deep veins of right proximal lower extremity (principal)
CPT/HCPCS: 36415; 80053; 85025; 85610; 85730; 93971; 99281; 99284

== ENCOUNTER → 2019-08-14 08:25 | Outpatient (CLI) | payer MEDICARE, BC, SELFPAY ==
[2019-08-14 09:12] LABS: Add Manual Diff / Slide Review NO; Basophils Absolute Auto 100 /uL (0-100); Eosinophils Absolute Auto 200 /uL (0-450); Eosinophils Percent Auto 2.6 % (2-4); Hematocrit 45.7 % (41-53); Hemoglobin 15.7 g/dL (13.5-17.5); Lymphocytes Absolute Auto 2000 /uL (1100-4500); Lymphocytes Percent Auto 27.4 % (25-40); Mean Corpuscular HGB Conc 34.3 % (30-36); Mean Corpuscular Hemoglobin 32.3 PG (26-34); Mean Corpuscular Volume 94.3 fL (80-100); Monocytes Absolute Auto 400 /uL (0-900); Monocytes Percent Auto 5.6 % (3-14); Neutrophils Absolute Auto 4600 /uL (1500-7000); Neutrophils Percent Auto 63.4 % (50-75); Platelet Count 281 X10^3/uL (150-400); Red Blood Cell Count 4.85 X10^6/uL (4.5-5.9); Red Cell Distribution Width 12.9 % (11.6-14.8); White Blood Cell Count 7.3 X10^3/uL (4.5-11.0)
[2019-08-14 09:30] LABS: Alanine Aminotransferase 40 IU/L (<50); Albumin 4.8 g/dL (3.5-5.0); Albumin Globulin Ratio 1.5 (1.0-2.8); Alkaline Phosphatase 68 U/L (38-126); Aspartate Aminotransferase 34 IU/L (17-59); BUN Creatinine Ratio 14.9 (6-22); Bilirubin Total 0.4 mg/dL (0.2-1.3); Blood Urea Nitrogen 13 mg/dL (9-20); Calcium 9.9 mg/dL (8.4-10.2); Carbon Dioxide 27 mmol/L (22-32); Chloride 103 mmol/L (98-107); Estimated Glomerular Filt Rate > 60.0 mL/min (>60); Globulin 3.2 g/dL (1.7-4.1); Glucose 107 mg/dL (80-110); HEMOLYSIS < 15 (0-50); Potassium 4.5 mmol/L (3.4-5.1); Sodium 139 mmol/L (137-145)
[2019-08-14 09:46] LABS: D Dimer < 200 ng/mL (<230)
== END ==
PROVIDERS: PCP Internal Medicine; Referring Provider Internal Medicine Hematology & Oncology; Visit Provider Internal Medicine Hematology & Oncology
DX: I80.00 Phlebitis and thrombophlebitis of superficial vessels of unspecified lower extremity (principal)
CPT/HCPCS: 36415; 80053; 85025; 85379

== ENCOUNTER → 2019-08-14 15:40 | Oncology outpatient (ONC) | payer MEDICARE, BC, SELFPAY ==
--- NOTE | 2019-07-17 14:39 | P.CONONC_ITS ---
History of Present Illness - Data of Consult Patient: new to practice Consult date: 07/17/19 Requesting Physician: Erin Hay MD Primary Care Provider: Jerrod Fuentes MD - Consult Narrative Reason for consult: Thrombophlebitis of greater sapheneous vein on the right side. Narrative: Rob Murphy is a 69 year old male with medical problems notable for sleep apnea syndrome as well as hyperlipidemia. Patient was diagnosed with right greater saphenous vein thrombophlebitis in January 2019. Patient said that he was in a walking group. He felt warmth, tenderness, and erythema of the right inner side of upper thigh while walking for about 2-3 days. He eventually went to emergency room on January 2019. Patient underwent Doppler study which showed no deep venous thrombosis but it showed thrombophlebitis of the right saphenous vein close proximity to the confluence with the greater saphenous vein within 4 mm. Therefore patient was started on anticoagulation with Eliquis. Patient has tolerated well. No bleeding events. Patient said that the symptoms of the right upper thigh resolved within about 10 days. Since that everything has been well. He denies any fever or chills. No nausea no vomiting. No shortness of breath no chest pain. No lower extremity swelling. CC: Briana Conroy MD Patient reports pain?: No Home Medications and Allergies Home Medications Medication Instructions Recorded Confirmed Type atorvastatin 10 mg tablet 5 mg PO QPM 08/18/18 07/17/19 History Tums 1 tab PO PRN PRN 01/18/19 07/17/19 History Resmed Airsense 10 CPAP #1 ea 02/16/19 07/17/19 History Allergies Allergy/AdvReac Type Severity Reaction Status Date / Time No Known Drug Allergies Allergy Verified 02/16/19 10:59 Medical History - Medical, Surgical, Family History Medical History: Medical History (Last Updated 07/17/19 @ 14:53 by Briana Conroy MD) Excessive daytime sleepiness History of hyperlipidemia Obstructive sleep apnea of adult Snoring Surgical History: Surgical History (Last Reviewed 01/18/19 @ 11:23 by OMARI Browne) History of toe surgery - Social History Smoking Status: Never smoker Substance Use Type: does not use Alcohol Intake: current Alcohol Intake Frequency: 0-2 drinks per day (bear a day) Review of Systems All systems PM: reviewed and no additional remarkable complaints except as stated (Those mentioned in HPI.) Exam Vital signs: 07/17/19 15:09 Last Vital Signs Temp 98.4 F 07/17/19 14:51 Pulse 64 07/17/19 14:51 Resp 16 07/17/19 14:51 BP 128/74 07/17/19 14:51 Pulse Ox 93 07/17/19 14:51 Narrative: ECOG 1 Vitals above reviewed Constitutional: WDWN, well nourished, and well groomed. NAD. Pleasant and co operative. HEENT: NCAT, EOMI, PERRLA, anicteric sclera. Oral mucosa clean, no erythema, no ulcers noted on the oral mucosa, no enlargement of tonsils, and no pharynx secretions noted. Neck: Supple and symmetrical. No palpable thyromegaly or lymphadenopathy. No palpable masses. Respiratory: No use of accessory muscles, CTAB, no wheezes. Cardiovascular: RRR, S1 and S2 normal, no M/G/R. No edema of lower extremities. Abdomen: Soft, NTND, no palpable hepatosplenomegaly, no hernia. Lymphatic: no palpable palpable lymph nodes in the neck, axillae, or groins. Musculoskeletal: normal gait and station. No swelling and no tenderness of the lower extremities. Skin: no rashes, lesions, or ulcers, no induration, or sub cutaneous nodules. Neurological: AOx3, CN II-XII grossly intact. No focal motor or sensory deficit. Psychiatric: Normal judgment and insight, AOx3, normal memory (recent and remote), normal mood and affect. Results - Labs Reviewed. - Imaging Additional studies: Procedures Injection of other agent into spinal canal (01/13/13) Injection of steroid (01/13/13) Injection of tranquilizer (08/29/13) Insertion of indwelling urinary catheter (04/15/12) Other x-ray of cervical spine (01/13/13) Assessment and Plan (1) Saphenous vein thrombophlebitis Overview: 69-year-old gentleman with diagnosis of left lower extremity greater saphenous vein thrombophlebitis with close proximity to the right femoral vein diagnosed in January 2019. Patient has been on anticoagulation with Eliquis and has tolerated very well. Assessment: First of all, I explained to the patient that the reason patient needs anticoagulation is because of the close proximity of the thrombophlebitis to the confluence of the greater saphenous vein to the femoral vein. There is a risk of progression of the thromboembolism and results in worsening deep venous thr ombosis and or venous thromboembolism. The anticoagulation is recommended and indicated. I talked with the patient that I usually would do a 6 months solid anticoagulation. I would repeat a blood routine including D-dimers. If the D- dimer is normal, may consider stopping the full anticoagulation. Patient voiced understanding. Plan: Continue Eliquis 5 mg bid RTC in 4 weeks, CBC, CMP, D-Dimer
[2019-07-17 14:51] VITALS: BP 128/74; PULSE 64; RESP 16; TEMP 36.9; O2SAT 93
--- NOTE | 2019-08-14 16:20 | ONC.PN ---
PN -Subjective Interval history: ID/CC 69 HPI Rob Murphy is a 69 year old male with medical problems notable for sleep apnea syndrome as well as hyperlipidemia. Patient was diagnosed with right greater saphenous vein thrombophlebitis in January 2019. Patient said that he was in a walking group. He felt warmth, tenderness, and erythema of the right inner side of upper thigh while walking for about 2-3 days. He eventually went to emergency room on January 2019. Patient underwent Doppler study which showed no deep venous thrombosis but it showed thrombophlebitis of the right saphenous vein close proximity to the confluence with the greater saphenous vein within 4 mm. Therefore patient was started on anticoagulation with Eliquis. Interval Events Patient came here today for scheduled follow-up visit. Patient said that he has been doing very well. He is in a walking club. He walks without any significant difficulties. He denies any shortness of breath or chest pain. He denies nausea or vomiting. He denies fever or chills. He denies any lower extremity swelling or pain. - Patient Self-Reported Symptoms SR ears, nose, mouth, throat issues: Ears ringing SR Gastrointestinal issues: Heartburn - Additional ROS All systems PM: reviewed and no additional remarkable complaints except as stated (those mentioned in HPI, Interval History and SR above.) Home Medications and Allergies Home Medications Medication Instructions Recorded Confirmed Type atorvastatin 10 mg tablet 5 mg PO QPM 08/18/18 07/17/19 History Tums 1 tab PO PRN PRN 01/18/19 07/17/19 History Resmed Airsense 10 CPAP #1 ea 02/16/19 07/17/19 History Allergies Allergy/AdvReac Type Severity Reaction Status Date / Time No Known Drug Allergies Allergy Verified 02/16/19 10:59 Exam Vital signs: 08/14/19 17:29 Last Vital Signs Temp 97.4 F L 08/14/19 16:33 Pulse 61 08/14/19 16:33 Resp 16 08/14/19 16:33 BP 130/82 08/14/19 16:33 Pulse Ox 95 08/14/19 16:33 Narrative: ECOG 1 Vitals above reviewed Constitutional: WDWN, well nourished, and well groomed. NAD. Pleasant and cooperative. HEENT: NCAT, EOMI, PERRLA, anicteric sclera. Respiratory: No use of accessory muscles Cardiovascular: RRR, S1 and S2 normal, no M/G/R. No edema of lower extremities. Abdomen: Soft, NTND, no palpable hepatosplenomegaly, no hernia. Musculoskeletal: normal gait and station. No swelling and no tenderness of the lower extremities. Neurological: AOx3, CN II-XII grossly intact. No focal motor or sensory deficit. Psychiatric: Normal judgment and insight, AOx3, normal memory (recent and remote), normal mood and affect. Results - Labs Labs from 08/14/2019: WBC 7.3, hemoglobin 15.7, hematocrit 45.7, platelets 281, sodium 139, potassium 4.5, chloride 103, BUN 13, creatinine 0.87, glucose 107, calcium 9.9, total bilirubin 0.4, AST 34, ALT 40, alk-phos 68, total protein 8.0, albumin 4.8, D-dimer less than 200 and ng per cc - Imaging Additional studies: Procedures Injection of other agent into spinal canal (01/13/13) Injection of steroid (01/13/13) Injection of tranquilizer (08/29/13) Insertion of indwelling urinary catheter (04/15/12) Other x-ray of cervical spine (01/13/13) Assessment and Plan (1) Saphenous vein thrombophlebitis Overview: 69-year-old gentleman with diagnosis of left lower extremity greater saphenous vein thrombophlebitis with close proximity to the right femoral vein diagnosed in January 2019. Patient has been on anticoagulation with Eliquis and has tolerated very well. Assessment: Up until now patient has been on anticoagulation with Eliquis 5 mg twice daily for about 6 months. Clinically there is no signs or symptoms to suggest recurrent thromboembolism. Laboratory tests showed normal CBC and normal CMP. More importantly, the D-dimer is completely undetectable. I talked with the patient that I would recommend that we stop Eliquis. Patient voiced understanding and agreement. However I did caution that he should avoid long distance airplane flight and be active. I talked with him that if he notices anything new or different, he can call us for follow-up visit. Plan: Stop Eliquis 5 mg bid RTC PRN
[2019-08-14 16:33] VITALS: BP 130/82; PULSE 61; RESP 16; TEMP 36.3; O2SAT 95
--- NOTE | 2019-08-14 16:35 | ONC.PN ---
PN -Subjective - Patient Self-Reported Symptoms SR ears, nose, mouth, throat issues: Ears ringing SR Gastrointestinal issues: Heartburn - Additional ROS All systems PM: reviewed and no additional remarkable complaints except as stated Home Medications and Allergies Home Medications Medication Instructions Recorded Confirmed Type atorvastatin 10 mg tablet 5 mg PO QPM 08/18/18 07/17/19 History Tums 1 tab PO PRN PRN 01/18/19 07/17/19 History Resmed Airsense 10 CPAP #1 ea 02/16/19 07/17/19 History Allergies Allergy/AdvReac Type Severity Reaction Status Date / Time No Known Drug Allergies Allergy Verified 02/16/19 10:59 Exam Vital signs: Vital Signs Temp Pulse Resp BP Pulse Ox 08/14/19 16:33 97.4 F L 61 16 130/82 95 Intake and Output 08/14/19 08/14/19 08/14/19 07:59 15:59 23:59 Other: Weight 97.5 kg Patient Weight 08/14/19 23:59 Weight 97.5 kg Narrative: ECOG 1 Vitals above reviewed Constitutional: WDWN, well nourished, and well groomed. NAD. Pleasant and cooperative. HEENT: NCAT, EOMI, PERRLA, anicteric sclera. Oral mucosa clean, no erythema, no ulcers noted on the oral mucosa, no enlargement of tonsils, and no pharynx secretions noted. Neck: Supple and symmetrical. No palpable thyromegaly or lymphadenopathy. No palpable masses. Respiratory: No use of accessory muscles, CTAB, no wheezes. Cardiovascular: RRR, S1 and S2 normal, no M/G/R. No edema of lower extremities. Abdomen: Soft, NTND, no palpable hepatosplenomegaly, no hernia. Lymphatic: no palpable palpable lymph nodes in the neck, axillae, or groins. Musculoskeletal: normal gait and station. No swelling and no tenderness of the lower extremities. Skin: no rashes, lesions, or ulcers, no induration, or sub cutaneous nodules. Neurological: AOx3, CN II-XII grossly intact. No focal motor or sensory deficit. Psychiatric: Normal judgment and insight, AOx3, normal memory (recent and remote), normal mood and affect. 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 Patient has been on anticoagulation with Eliquis and has tolerated very well. Assessment: First of all, I explained to the patient that the reason patient needs anticoagulation is because of the close proximity of the thrombophlebitis to the confluence of the greater saphenous vein to the femoral vein. There is a risk of progression of the thromboembolism and results in worsening deep venous thrombosis and or venous thromboembolism. The anticoagulation is recommended and indicated. I talked with the patient that I usually would do a 6 months solid anticoagulation. I would repeat a blood routine including D-dimers. If the D-dimer is normal, may consider stopping the full anticoagulation. Patient voiced understanding. Plan: Continue Eliquis 5 mg bid RTC in 4 weeks, CBC, CMP, D-Dimer
== END ==
PROVIDERS: PCP Internal Medicine; Referring Provider Internal Medicine Hematology & Oncology; Visit Provider Internal Medicine Hematology & Oncology
DX: I80.01 Phlebitis and thrombophlebitis of superficial vessels of right lower extremity (principal); G47.30 Sleep apnea, unspecified; E78.5 Hyperlipidemia, unspecified; Z79.01 Long term (current) use of anticoagulants
CPT/HCPCS: 36415; 80053; 85025; 85379; 99204; 99214

== ENCOUNTER → 2019-10-03 07:07 | Outpatient (CLI) | payer MEDICARE, BC, SELFPAY ==
[2019-10-03 09:01] LABS: Cholesterol 159 mg/dL (140-199); HDL Cholesterol 35 mg/dL (40-60); LDL Cholesterol Calculated 88 mg/dL (<100); Triglycerides 181 mg/dL (35-150)
== END ==
PROVIDERS: Referring Provider Internal Medicine; Visit Provider Internal Medicine
DX: E78.5 Hyperlipidemia, unspecified (principal)
CPT/HCPCS: 36415; 80061

== ENCOUNTER → 2019-10-19 10:47 | Outpatient (CLI) | payer MEDICARE, BC, SELFPAY ==
[2019-10-19 11:39] LABS: Add Manual Diff / Slide Review NO; Basophils Absolute Auto 0 /uL (0-100); Basophils Percent Auto 0.6 % (0-2); Eosinophils Absolute Auto 200 /uL (0-450); Eosinophils Percent Auto 3.5 % (2-4); Hematocrit 42.9 % (41-53); Hemoglobin 15.4 g/dL (13.5-17.5); Lymphocytes Absolute Auto 1800 /uL (1100-4500); Lymphocytes Percent Auto 29.7 % (25-40); Mean Corpuscular HGB Conc 35.8 % (30-36); Mean Corpuscular Hemoglobin 33.3 PG (26-34); Monocytes Absolute Auto 400 /uL (0-900); Monocytes Percent Auto 5.8 % (3-14); Neutrophils Absolute Auto 3600 /uL (1500-7000); Neutrophils Percent Auto 60.4 % (50-75); Platelet Count 270 X10^3/uL (150-400); Red Blood Cell Count 4.61 X10^6/uL (4.5-5.9); Red Cell Distribution Width 12.8 % (11.6-14.8)
[2019-10-19 11:53] LABS: Alanine Aminotransferase 49 IU/L (<50); Albumin 4.6 g/dL (3.5-5.0); Albumin Globulin Ratio 1.5 (1.0-2.8); Alkaline Phosphatase 79 U/L (38-126); Aspartate Aminotransferase 38 IU/L (17-59); BUN Creatinine Ratio 17.6 (6-22); Bilirubin Total 0.4 mg/dL (0.2-1.3); Blood Urea Nitrogen 13 mg/dL (9-20); Calcium 9.8 mg/dL (8.4-10.2); Carbon Dioxide 28 mmol/L (22-32); Chloride 104 mmol/L (98-107); Creatine Kinase 126 U/L (55-170); Estimated Glomerular Filt Rate > 60.0 mL/min (>60); Globulin 3.1 g/dL (1.7-4.1); Glucose 116 mg/dL (80-110); HEMOLYSIS < 15 (0-50); Potassium 3.9 mmol/L (3.4-5.1); Sodium 139 mmol/L (137-145); Total Protein 7.7 g/dL (6.3-8.2)
[2019-10-19 11:56] LABS: C-Reactive Protein Quant < 0.5 mg/dL (<1.0); Rheumatoid Factor < 8.6 IU/mL (<12.0)
[2019-10-19 13:32] LABS: Erythrocyte Sedimentation Rate 7 MM/HR (0-15)
[2019-10-23 21:39] LABS: CCP Antibodies IgG/IgA 6 units (0-19)
== END ==
PROVIDERS: PCP Internal Medicine; Referring Provider Internal Medicine; Visit Provider Internal Medicine
DX: M79.605 Pain in left leg (principal); M79.604 Pain in right leg; E78.5 Hyperlipidemia, unspecified
CPT/HCPCS: 36415; 80053; 82085; 82550; 84153; 85025; 85651; 86140; 86200; 86430

== ENCOUNTER → 2019-10-27 15:10 | Outpatient (CLI) | payer MEDICARE, BC, SELFPAY ==
--- NOTE | 2019-10-27 15:12 | DI.RAD.S_ITS ---
PROCEDURE: XR KNEE RT 3V INDICATIONS: PAIN IN LEFT AND RIGHT KNEES TECHNIQUE: 3 views of the knee were acquired. COMPARISON: None. FINDINGS: Bones: No acute fractures or dislocations. Tricompartmental degenerative changes with medial femorotibial compartment joint space narrowing. Marginal osteophyte formation. No suspicious bony lesions. Small patellar tendon enthesophyte at its attachment on the inferior pole of the patella. Soft tissues: Very small suprapatellar joint effusion. No suspicious soft tissue calcifications. IMPRESSION: Right knee without acute fracture or dislocation. Tricompartmental osteoarthrosis of the right knee. Dictated by: Lorenzo Nicholas M.D. on 10/27/2019 at 15:52 Approved by: Lorenzo Nicholas M.D. on 10/27/2019 at 15:54
--- NOTE | 2019-10-27 15:12 | DI.RAD.S_ITS ---
PROCEDURE: XR KNEE LT 1TO2V INDICATIONS: PAIN IN LEFT AND RIGHT KNEES TECHNIQUE: 3 views of the knee were acquired. COMPARISON: None. FINDINGS: Bones: No fractures or dislocations. Tricompartmental degenerative changes with marginal osteophyte formation and mild medial femorotibial compartment joint space narrowing. No suspicious bony lesions. Soft tissues: No substantial joint effusion. No suspicious soft tissue calcifications. IMPRESSION: Left knee without acute fracture or malalignment. Tricompartmental osteoarthrosis of the left knee. Dictated by: Lorenzo Nicholas M.D. on 10/27/2019 at 15:55 Approved by: Lorenzo Nicholas M.D. on 10/27/2019 at 15:56
== END ==
PROVIDERS: PCP Internal Medicine; Referring Provider Internal Medicine; Visit Provider Internal Medicine
DX: M25.561 Pain in right knee (principal); M25.562 Pain in left knee; M17.0 Bilateral primary osteoarthritis of knee
CPT/HCPCS: 73562

== ENCOUNTER → 2020-10-29 07:32 | Outpatient (CLI) | payer MEDICARE, BC, SELFPAY ==
[2020-10-29 08:29] LABS: Aspartate Aminotransferase 28 IU/L (17-59); BUN Creatinine Ratio 12.5 (6-22); Blood Urea Nitrogen 11 mg/dL (9-20); Calcium 9.8 mg/dL (8.4-10.2); Carbon Dioxide 29 mmol/L (22-32); Chloride 105 mmol/L (98-107); Cholesterol 132 mg/dL (140-199); Estimated Glomerular Filt Rate > 60.0 mL/min (>60); Glucose 99 mg/dL (80-110); HDL Cholesterol 37 mg/dL (40-60); HEMOLYSIS < 15 (0-50); LDL Cholesterol Calculated 69 mg/dL (<100); Potassium 4.4 mmol/L (3.4-5.1); Sodium 140 mmol/L (137-145); Triglycerides 128 mg/dL (35-150)
[2020-10-29 08:59] LABS: Prostate Specific Antigen 0.989 ng/mL (0.10-4.00)
[2020-10-29 09:39] LABS: Hep C Virus Ab w/Reflex Quant NEGATIVE s/c (NEGATIVE)
== END ==
PROVIDERS: PCP Internal Medicine; Referring Provider Internal Medicine; Visit Provider Internal Medicine
DX: M79.605 Pain in left leg (principal); M79.604 Pain in right leg; E78.5 Hyperlipidemia, unspecified; Z86.718 Personal history of other venous thrombosis and embolism; Z12.5 Encounter for screening for malignant neoplasm of prostate
CPT/HCPCS: 80048; 80061; 84153; 84450; 86803

== ENCOUNTER 2021-06-13 16:40 | Emergency (ER) | payer MEDICARE, BC, SELFPAY ==
[2021-06-13 16:11] VITALS: BMI 29.0
--- NOTE | 2021-06-13 16:48 | ED_ITS ---
HPI - CPR General Chief Complaint: Cardiac Arrest/CPR Stated Complaint: SOB Time Seen by Provider: 06/13/21 16:42 History of Present Illness HPI narrative: Patient arrives to the emergency department in full arrest. EMS had called from patient's home for complaints of dyspnea. Patient status post knee surgery. This past week. Has been doing well. On EMS arrival in the ambulance Ralph while still in the ambulance, patient coded. Blood sugar 127 done here. One dose of epinephrine already given by EMS. Patient intubated with Igel, by EMS. It was quickly replaced by me by 7.0 ET tube by [employer]. Patient partner at bedside. ACLS protocol followed. 6 mg total of epinephrine given without any cardiac activity or pulse. Pupils are fixed and dilated. No corneal reflex. No response to pain stimuli. Life partner here, denies any recent illness. No prior history of hyper lipidemia, hypertension, heart attack strokes or diabetes. Possible history of blood clot in leg 3 years ago. Patient had partial right knee surgery at [facility] Related Data Home Medications Medication Instructions Recorded Confirmed atorvastatin 10 mg tablet (Lipitor) 5 mg PO QPM 08/18/18 07/17/19 Tums 1 tab PO PRN PRN 01/18/19 07/17/19 Resmed Airsense 10 CPAP #1 ea 02/16/19 07/17/19 Allergies Allergy/AdvReac Type Severity Reaction Status Date / Time No Known Drug Allergies Allergy Verified 02/16/19 10:59 Review of Systems Review of Systems Narrative: GENERAL: Denies chills, fatigue, malaise, fever, sweats. HEENT: Denies sinus pain, ear pain, sore throat RESPIRATORY: Positive for dyspnea, negative cough CARDIOVASCULAR: Denies chest pain, palpitations GASTROINTESTINAL: Denies nausea, vomiting, abdominal pain : Denies dysuria, frequency, hematuria MUSCULOSKELETAL: denies muscle or bony pain SKIN: Denies rash, skin lesions NEUROLOGIC: Denies weakness, numbness ROS Unobtainable: All systems reviewed & are unremarkable except as noted in HPI and below and Other (Review of system provided by partner) Patient History Medical History Excessive daytime sleepiness History of hyperlipidemia Obstructive sleep apnea of adult Snoring Superficial thrombophlebitis of right leg (~01/2019) Surgical History History of toe surgery Social History Smoking Status: Never smoker alcohol intake: current substance use type: does not use Smoking Status: Never smoker alcohol intake frequency: 0-2 drinks per day (bear a day) Substance Use Type: does not use Exam Narrative Exam Narrative: GENERAL: CPR in progress. Patient arrives intubated. Pulseless and apneic. HEAD: Normocephalic. EYES: Pupils fixed and dilated. ENT: Mucous membranes moist. NECK: Trachea midline. CARDIOVASCULAR: No heart sounds by auscultation. No cardiac activity by bedside ultrasound. Portable Doppler detects pulse only with CPR. Otherwise no pulse. Attained on carotids and femorals arteries RESPIRATORY: No spontaneous breath sounds. Patient intubated and does of equal lung sounds GASTROINTESTINAL: Abdomen soft EXTREMITIES: No gross deformities. NEURO: Pupils fixed and dilated. No response to pain stimuli. No corneal reflex SKIN: Warm and dry Course Orders Ordered: ED Orders 06/13/21 16:45 Consult to EXAMINER RATING CLERK - Leather Coverer Stat Reevaluation(s) Reevaluation #1: Time of called at 4:36 p.m.. Life partner did arrive prior to cessation. I did discuss with her that we have been resuscitating for 20 minutes without any detection of pulse or spontaneous breaths. No response to pain. She agrees for stopping CPR efforts and ACLS protocol. MDM - Cardiac Arrest/CPR Differential Diagnosis Differential diagnosis: Likely acute massive pulmonary embolism, acute respiratory failure, acute myocardial infarction, cardiac arrest and sudden cardiac MDM Narrative Medical decision making narrative: Appropriate to stop CPR and code. I did review with partner before stopping. Arrival time is 4:16 p.m.. Time of called at 4:36 p.m. Discharge Plan Departure Patient Disposition: Clinical Impression: Cardiopulmonary arrest Date/Time: 06/13/21 16:36
--- NOTE | 2021-06-13 17:14 | PC.NURSE ---
Per , patient had partial right knee replacement in [place] by Dr Cleaning 4 days. Until today was recovering well, called 911 for possible syncopal episode, shortness of breath, and chest pain. EMS reports patient was talking, AxOx4 on scene, BP 140/100 HR 120 88% on RA. During transport placed on NRB at 15L at 91% and continued to c/o SOB. Patient arrived via EMS @ 1611, was notified by EMS that CPR was in progress in ambulance bay. EMS gave 1mg epi by IV @ 1619 and placed iGel airway. 1620: Patient into RM 1 CPR in progress by EMS. Patient appeared cyanotic, cool, and clammy. 1623: 1mg Epi given by IV 1625: Dr Lane replaced iGel with 7.0 ETT measuring 24cm @ teeth, confirmed placement via auscultation and end tidal CO2 detector. 1626: 1mg Epi given by IV 1626: CPR compressor switched 1628: Per Dr Lane, no cardiac activity by ultrasound at chest, resume CPR 1629: 1mg Epi given by IV 1629: CPR compressor switched 1630: Per Dr Lane, no spontaneous pulse at groin by ultrasound when CPR paused 1631: CPR compressor switched 1632: 1mg Epi given by IV 1633: CPR compressor switched 1635: 1mg Epi given by IV 1636: CPR compressor switched 1636: CPR stopped 1636: Time of called by Dr Lane in ED, Delia Mccullough [phone]. Pt reports that he wished to be cremated with [employer], to contact them and follow up with ED. notified patient could potentially be taken to [facility] for refrigeration. spiritual care coordinator contacted at 1640, awaiting call back, case #[id number]. [facility] Hospital[facility] Professor notified, spoke to Lilia, awaiting call back.
--- NOTE | 2021-06-14 14:30 | PC.NURSE ---
Partner Delia called with questions regarding certificate. She also has had difficulty contacting [employer]. Reviewed numbers she has and they are correct. Pt is currently having tissue harvested and procurement organization is helping her contact [employer] as well. Delia appears to be coping but grieving. PARACHUTE SUPERVISOR referral placed to follow up with her on Wednesday / Wednesday as available. Support given, questions answered.
== END 2021-06-13 18:51 | disposition expired ==
PROVIDERS: Emergency Provider Emergency Medicine; PCP Internal Medicine
DX: I46.9 Cardiac arrest, cause unspecified (principal); Z98.890 Other specified postprocedural states
CPT/HCPCS: 92950; 94799; 99281; 99285; J0171